=== PATIENT | male | born 1985 | race Asian ===

== ENCOUNTER → 2018-01-14 | Outpatient (CLI) | payer BC ==
--- NOTE | 2018-01-14 14:46 | RADIOLOGY IMAGING REPORT ---
FACILITY: [facility] - [place] PATIENT NAME: Eh Crystal : 1985 MR: [id number] V: [id number] EXAM DATE: ORDERING PHYSICIAN: DIONI JUNG TECHNOLOGIST: Location: [facility] - [place] Patient: Eh Crystal : 1985 Visit/Account:[id number] Date of Sevice: 01/14/2018 3 views thoracic spine INDICATION: Chronic T-spine pain with hyperkyphosis. COMPARISON: None available FINDINGS: The vertebral body heights and disc spaces are well maintained. There is no acute osseous or acute alignment abnormality. Mild marginal anterior osteophytes seen throughout the thoracic spine. IMPRESSION: 1. No acute osseous or acute alignment abnormality of the thoracic spine. 2. Mild degenerative changes as above. Report Dictated By: Ramakrishna Pitt MD at 01/14/2018 2:43 PM Report E-Signed By: Ramakrishna Pitt MD at 01/14/2018 2:43 PM WSN:[email or web address]
== END ==
LOC: RAD 13:50
PROVIDERS: ATTEND Chiropractor
DX: M40.294 Other kyphosis, thoracic region (principal); R07.89 Other chest pain
CPT/HCPCS: 72070